=== PATIENT | female | born 1985 | race Caucasian/White ===

== ENCOUNTER 2016-09-08 20:01 | Emergency (ER) | payer OTHER ==
--- NOTE | 2016-09-08 21:16 | EDDOCDS ---
Physician Documentation [facility] Name: Stella Abreu Age: 31 yrs Sex: Female : 1985 Arrival Date: 09/08/2016 Time: 20:01 Bed 7 Private MD: Beata Salazar H Disposition: 09/08/16 21:06 Discharged to Home/Self Care. Impression: Urinary tract infection, site not specified. - Condition is Stable. - Prescriptions for Keflex 500 mg Oral Capsule - take 1 capsule by ORAL route every 8 hours for 10 days; 30 capsule. - Medication Reconciliation, Local Pharmacy Hours form. - Follow up: Private Physician; When: Call to arrange an appointment; Reason: Recheck today's complaints. - Problem is new. - Symptoms have improved. Historical: - Allergies: no known allergies; - Home Meds: 1. Lexapro 25mg Oral once daily 2. Hydroxyzine 20mg Oral as needed - PMHx: none; - PSHx: none; - Social history: Smoking status: Patient states was never smoker of tobacco. No barriers to communication noted, The patient speaks fluent Guamanian. - Family history: Not pertinent. - : The pt / caregiver states he / she is not on anticoagulants. Home medication list is obtained from the patient. - Exposure Risk Screening:: None identified. 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 2 in. (157.48 cm); Pain 8/10; 21:13 BP 129 / 76; Pulse 95; Resp 18 S; Temp 98.1(O); Pulse Ox 99% on R/A; Pain 0/10; af2 20:03 Body Mass Index 20.30 (50.35 kg, 157.48 cm) cmb MDM: 20:16 Urinalysis Ordered. EDMS 20:16 Urine Culture Ordered. EDMS 21:04 Urinalysis Reviewed. cs11 Signatures: Dispatcher [employer] EDPaty Nelson RN RN Juan Horn, DO DO cs11 Esperanza,Dana,RN RN af2 MTDD
--- NOTE | 2016-09-08 21:16 | EDDOCDS ---
Nurse's Notes [facility] Name: Stella Abreu Age: 31 yrs Sex: Female : 1985 Arrival Date: 09/08/2016 Time: 20:01 Bed 7 Private MD: Beata Salazar H Diagnosis: Urinary tract infection, site not specified Presentation: 09/08 20:10 Presenting complaint: Patient states: Is having burning with urination, urine dark and mcp foul smelling. Is 7 weeks . Adult Sepsis Screening: The patient does not have new or worsening altered mentation. Patient's respiratory rate is less than 22. Systolic blood pressure is greater than 100. Patient has a qSOFA score of 0- Negative Sepsis Screen. Suicide/Homicide risk assessment- the patient denies having any suicidal and/or homicidal ideations and does not present with any other emotional, behavioral or mental health complaints. 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 Transition of care: patient was not received from another setting of care. 20:10 Acuity: MARY Level 4 [facility] 20:10 Method Of Arrival: Walkin/Carried/Asstd [facility] Triage Assessment: 20:12 General: Appears in no apparent distress, Behavior is cooperative. Pain: Location: with mcp urination. HIV screening NA for this visit Offered previously. Neurological: No deficits noted. Respiratory: No deficits noted. : Reports burning with urination. Derm: Skin is pink, warm & dry. 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 Lexapro 25mg Oral once daily 2. Hydroxyzine 20mg Oral as needed - PMHx: none; - PSHx: none; - Social history: Smoking status: Patient states was never smoker of tobacco. No barriers to communication noted, The patient speaks fluent Belarusian. - Family history: Not pertinent. - : The pt / caregiver states he / she is not on anticoagulants. Home medication list is obtained from the patient. - Exposure Risk Screening:: None identified. Screenin:46 Screening information is obtained from the patient. Fall risk: No risks identified. af2 Assistance ADL's: requires no assistance with activities of daily living. Abuse/DV Screen: The patient / caregiver reports he/she is: not in a situation that causes fear, pain or injury. Nutritional screening: No deficits noted. Advance Directives: Currently, there is no health care proxy. home support is adequate. Assessment: 20:45 General: Appears in no apparent distress, comfortable, Behavior is appropriate for age, af2 cooperative, reports being 7 wks , white discharge, burning with urination, states to this telegraphic typewriter operator "the amado i've been sleeping with has herpes." dr gtz aware.. Vital Signs: 20:03 BP 132 / 82; Pulse 88; Resp 16; Temp 97.6(O); Pulse Ox 100% ; Weight 50.35 kg; Height 5 cmb ft. 2 in. (157.48 cm); Pain 8/10; 21:13 BP 129 / 76; Pulse 95; Resp 18 S; Temp 98.1(O); Pulse Ox 99% on R/A; Pain 0/10; af2 20:03 Body Mass Index 20.30 (50.35 kg, 157.48 cm) cmb Vitals: 20:03 Log In Time: September 08, 2016 at 20:01. cmb ED Course: 20:03 Patient visited by Ruma Vargas. cmb 20:03 Beata Salazar is Private Physician. cmb 20:03 Patient moved to Waiting cmb 20:03 Patient moved to Pre RCE cmb 20:10 Patient moved to Triage 2 kmg1 20:10 Patient moved to Pre RCE kmg1 20:11 Triage Initiated [facility] 20:13 Patient visited by Paty Howard RN. mcp 20:13 Dana Mata RN is Primary Nurse. mcp 20:13 Juan Gtz DO is Attending Physician. cs11 20:13 Patient visited by Juan Gtz DO. cs11 20:13 Patient moved to 7 mcp 20:45 Urinalysis Sent. af2 20:45 Urine Culture Sent. af2 20:47 Patient visited by Dana Mata RN. af2 20:47 The patient / caregiver is instructed regarding the plan of care and ED course. Patient af2 has correct armband on for positive identification. Placed in gown. 21:15 No IV's were initiated during this patient's visit. No procedures done that require af2 assistance. Order Results: Lab Order: Urinalysis; SPEC'M 09/08/16 20:45 Test: APPEARANCE, URINE; Value: CLOUDY; Range: CLEAR; Abnormal: Above high normal; Status: F Test: COLOR, URINE; Value: YELLOW; Range: YELLOW; Status: F Test: PH,URINE; Value: 6.0; Range: 5.0-9.0; Units: UNITS; Status: F Test: SPECIFIC GRAVITY URINE AUTO; Value: 1.015; Range: 1.002-1.035; Status: F Test: PROTEIN, URINE AUTO; Value: NEGATIVE; Range: NEGATIVE; Units: mg/dL; Status: F Test: GLUCOSE, URINE (UA) AUTO; Value: NEGATIVE; Range: NEGATIVE; Units: mg/dL; Status: F Test: KETONE, URINE AUTO; Value: NEGATIVE; Range: NEGATIVE; Units: mg/dL; Status: F Test: UROBILINOGEN, URINE AUTO; Value: 0.2; Range: 0.0-2.0; Units: mg/dL; Status: F Test: BILIRUBIN, URINE AUTO; Value: NEGATIVE; Range: NEGATIVE; Status: F Test: NITRITE, URINE AUTO; Value: NEGATIVE; Range: NEGATIVE; Status: F Test: LEUKOCYTE ESTERASE, URINE AUTO; Value: 3+; Range: NEGATIVE; Abnormal: Above high normal; Status: F Test: BLOOD, URINE BLOOD; Value: NEGATIVE; Range: NEGATIVE; Status: F Test: WBC, URINE AUTO; Value: 37; Range: 0-3; Abnormal: Above high normal; Units: /HPF; Status: F Test: RBC, URINE AUTO; Value: 3; Range: 0-3; Units: /HPF; Status: F Test: BACTERIA, URINE AUTO; Value: NEGATIVE; Range: NEGATIVE; Status: F Test: SQUAMOUS EPITHELIAL CELL UR AU; Value: 9; Range: 0-6; Units: /HPF; Status: F Test: TRANSITIONAL EPITHELIAL AUTO; Value: 1; Range: NONE; Units: /HPF; Status: F Test: MUCUS, URINE; Value: SMALL; Range: NEGATIVE; Status: F Test: HYALINE CAST, URINE AUTO; Value: 0; Range: 0-1; Units: /LPF; Status: F Outcome: 21:06 Discharge ordered by Provider. [facility] 21:14 Discharge Assessment: Patient awake, alert and oriented x 3. No cognitive and/or af2 functional deficits noted. Patient verbalized understanding of disposition instructions. patient administered narcotics - no. The following High Risk Discharge criteria are identified: None. Discharged to home ambulatory. Condition: stable. Discharge instructions given to patient, Instructed on discharge instructions, follow up and referral plans. medication usage, safe sex practices, referral to PCP and public health for STD testing. No special radiology studies were completed. Property :Personal belongings accompany Pt. 21:15 Patient left the ED. af2 Signatures: Yusra Shin RN RN kmg1 Paty Howard RN RN Ruma Lauren Craig, DO DO cs11 Dana Mata RN RN af2 Corrections: (The following items were deleted from the chart) 20:12 20:10 Presenting complaint: Patient states: Is having burning with urination, urine mcp dark and foul smelling mcp MTDD
--- NOTE | 2016-09-10 22:15 | EDDOCDS ---
Physician Documentation [facility] Name: Stella Abreu Age: 31 yrs Sex: Female : 1985 Arrival Date: 09/08/2016 Time: 20:01 Bed 7 Private MD: Beata Salazar H Disposition: 09/08/16 21:06 Discharged to Home/Self Care. Impression: Urinary tract infection, site not specified. - Condition is Stable. - Prescriptions for Keflex 500 mg Oral Capsule - take 1 capsule by ORAL route every 8 hours for 10 days; 30 capsule. - Medication Reconciliation, Local Pharmacy Hours form. - Follow up: Private Physician; When: Call to arrange an appointment; Reason: Recheck today's complaints. - Problem is new. - Symptoms have improved. Historical: - Allergies: no known allergies; - Home Meds: 1. Lexapro 25mg Oral once daily 2. Hydroxyzine 20mg Oral as needed - PMHx: none; - PSHx: none; - Social history: Smoking status: Patient states was never smoker of tobacco. No barriers to communication noted, The patient speaks fluent Pakistani. - Family history: Not pertinent. - : The pt / caregiver states he / she is not on anticoagulants. Home medication list is obtained from the patient. - Exposure Risk Screening:: None identified. 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 2 in. (157.48 cm); Pain 8/10; 21:13 BP 129 / 76; Pulse 95; Resp 18 S; Temp 98.1(O); Pulse Ox 99% on R/A; Pain 0/10; af2 20:03 Body Mass Index 20.30 (50.35 kg, 157.48 cm) cmb MDM: 20:16 Urinalysis Ordered. EDMS 20:16 Urine Culture Ordered. EDMS 21:04 Urinalysis Reviewed. cs11 21:28 Financial registration complete. zo 21:28 [facility] Payment Agreement was scanned into [employer] and attached to record. zo 09/09 09:10 T-Sheet-- Draft Copy was scanned into [employer] and attached to record. [facility] Signatures: Dispatcher [employer] Paty Rhodes RN RN mcp Olin, Zoeann zo Schiff, Craig, DO DO cs11 Dana Mata RN RN af2 Annabelle Mcbirde [facility] The chart was reviewed and I authenticate all verbal orders and agree with the evaluation and treatment provided.Attachments: 09/08 21:28 [facility] Payment Agreement zo 09/09 09:10 T-Sheet-- Draft Copy [facility] Chart Complete MTDD
--- NOTE | 2016-09-10 22:15 | EDDOCDS ---
Nurse's Notes [facility] Name: Stella Abreu Age: 31 yrs Sex: Female : 1985 Arrival Date: 09/08/2016 Time: 20:01 Bed 7 Private MD: Beata Salazar H Diagnosis: Urinary tract infection, site not specified Presentation: 09/08 20:10 Presenting complaint: Patient states: Is having burning with urination, urine dark and mcp foul smelling. Is 7 weeks . Adult Sepsis Screening: The patient does not have new or worsening altered mentation. Patient's respiratory rate is less than 22. Systolic blood pressure is greater than 100. Patient has a qSOFA score of 0- Negative Sepsis Screen. Suicide/Homicide risk assessment- the patient denies having any suicidal and/or homicidal ideations and does not present with any other emotional, behavioral or mental health complaints. Status: Patient is not a mobile home servicer or dependent. Transition of care: patient was not received from another setting of care. 20:10 Acuity: MARY Level 4 [facility] 20:10 Method Of Arrival: Walkin/Carried/Asstd [facility] Triage Assessment: 20:12 General: Appears in no apparent distress, Behavior is cooperative. Pain: Location: with mcp urination. HIV screening NA for this visit Offered previously. Neurological: No deficits noted. Respiratory: No deficits noted. : Reports burning with urination. Derm: Skin is pink, warm & dry. 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 Lexapro 25mg Oral once daily 2. Hydroxyzine 20mg Oral as needed - PMHx: none; - PSHx: none; - Social history: Smoking status: Patient states was never smoker of tobacco. No barriers to communication noted, The patient speaks fluent Albanian. - Family history: Not pertinent. - : The pt / caregiver states he / she is not on anticoagulants. Home medication list is obtained from the patient. - Exposure Risk Screening:: None identified. Screenin:46 Screening information is obtained from the patient. Fall risk: No risks identified. af2 Assistance ADL's: requires no assistance with activities of daily living. Abuse/DV Screen: The patient / caregiver reports he/she is: not in a situation that causes fear, pain or injury. Nutritional screening: No deficits noted. Advance Directives: Currently, there is no health care proxy. home support is adequate. Assessment: 20:45 General: Appears in no apparent distress, comfortable, Behavior is appropriate for age, af2 cooperative, reports being 7 wks , white discharge, burning with urination, states to this auto service writer "the amado i've been sleeping with has herpes." dr gtz aware.. Vital Signs: 20:03 BP 132 / 82; Pulse 88; Resp 16; Temp 97.6(O); Pulse Ox 100% ; Weight 50.35 kg; Height 5 cmb ft. 2 in. (157.48 cm); Pain 8/10; 21:13 BP 129 / 76; Pulse 95; Resp 18 S; Temp 98.1(O); Pulse Ox 99% on R/A; Pain 0/10; af2 20:03 Body Mass Index 20.30 (50.35 kg, 157.48 cm) cmb Vitals: 20:03 Log In Time: September 08, 2016 at 20:01. cmb ED Course: 20:03 Patient visited by Ruma Vargas. cmb 20:03 Beata Salazar is Private Physician. cmb 20:03 Patient moved to Waiting cmb 20:03 Patient moved to Pre RCE cmb 20:10 Patient moved to Triage 2 kmg1 20:10 Patient moved to Pre RCE kmg1 20:11 Triage Initiated [facility] 20:13 Patient visited by Paty Howard RN. mcp 20:13 Dana Mata RN is Primary Nurse. mcp 20:13 Juan Gtz DO is Attending Physician. cs11 20:13 Patient visited by Juan Gtz DO. cs11 20:13 Patient moved to 7 mcp 20:45 Urinalysis Sent. af2 20:45 Urine Culture Sent. af2 20:47 Patient visited by Dana Mata RN. af2 20:47 The patient / caregiver is instructed regarding the plan of care and ED course. Patient af2 has correct armband on for positive identification. Placed in gown. 21:15 No IV's were initiated during this patient's visit. No procedures done that require af2 assistance. 21:28 [facility] was scanned into [employer] and attached to record. zo 09/09 09:10 T-Sheet-- Draft Copy was scanned into [employer] and attached to record. [facility] Order Results: Lab Order: Urinalysis; SPEC'M 09/08/16 20:45 Test: APPEARANCE, URINE; Value: CLOUDY; Range: CLEAR; Abnormal: Above high normal; Status: F Test: COLOR, URINE; Value: YELLOW; Range: YELLOW; Status: F Test: PH,URINE; Value: 6.0; Range: 5.0-9.0; Units: UNITS; Status: F Test: SPECIFIC GRAVITY URINE AUTO; Value: 1.015; Range: 1.002-1.035; Status: F Test: PROTEIN, URINE AUTO; Value: NEGATIVE; Range: NEGATIVE; Units: mg/dL; Status: F Test: GLUCOSE, URINE (UA) AUTO; Value: NEGATIVE; Range: NEGATIVE; Units: mg/dL; Status: F Test: KETONE, URINE AUTO; Value: NEGATIVE; Range: NEGATIVE; Units: mg/dL; Status: F Test: UROBILINOGEN, URINE AUTO; Value: 0.2; Range: 0.0-2.0; Units: mg/dL; Status: F Test: BILIRUBIN, URINE AUTO; Value: NEGATIVE; Range: NEGATIVE; Status: F Test: NITRITE, URINE AUTO; Value: NEGATIVE; Range: NEGATIVE; Status: F Test: LEUKOCYTE ESTERASE, URINE AUTO; Value: 3+; Range: NEGATIVE; Abnormal: Above high normal; Status: F Test: BLOOD, URINE BLOOD; Value: NEGATIVE; Range: NEGATIVE; Status: F Test: WBC, URINE AUTO; Value: 37; Range: 0-3; Abnormal: Above high normal; Units: /HPF; Status: F Test: RBC, URINE AUTO; Value: 3; Range: 0-3; Units: /HPF; Status: F Test: BACTERIA, URINE AUTO; Value: NEGATIVE; Range: NEGATIVE; Status: F Test: SQUAMOUS EPITHELIAL CELL UR AU; Value: 9; Range: 0-6; Units: /HPF; Status: F Test: TRANSITIONAL EPITHELIAL AUTO; Value: 1; Range: NONE; Units: /HPF; Status: F Test: MUCUS, URINE; Value: SMALL; Range: NEGATIVE; Status: F Test: HYALINE CAST, URINE AUTO; Value: 0; Range: 0-1; Units: /LPF; Status: F Lab Order: Urine Culture; SPEC'M 09/08/16 20:45 Test: URINE CULTURE; Value: <EXTERNAL COMMENT eCWMed> FULL REPORT IN LAB NOTES (eCW and Medent).; Status: F Test: URINE CULTURE; Value: URINE CULTURE RESULT SPECIMEN APPEARS CONTAMINATED; Status: F Outcome: 09/08 21:06 Discharge ordered by Provider. 11 21:14 Discharge Assessment: Patient awake, alert and oriented x 3. No cognitive and/or af2 functional deficits noted. Patient verbalized understanding of disposition instructions. patient administered narcotics - no. The following High Risk Discharge criteria are identified: None. Discharged to home ambulatory. Condition: stable. Discharge instructions given to patient, Instructed on discharge instructions, follow up and referral plans. medication usage, safe sex practices, referral to PCP and public health for STD testing. No special radiology studies were completed. Property :Personal belongings accompany Pt. 21:15 Patient left the ED. af2 Signatures: Yusra Shin RN RN kmg1 Paty Howard RN RN Floresita Esparza [place] cmb Schiff, Craig, DO DO cs11 Dana Mata RN RN af2 Annabelle Mcbride Corrections: (The following items were deleted from the chart) 20:12 20:10 Presenting complaint: Patient states: Is having burning with urination, urine mcp dark and foul smelling mcp Chart Complete MTDD
--- NOTE | 2016-09-10 22:15 | EDDOCDS ---
Physician Documentation [facility] Name: Stella Abreu Age: 31 yrs Sex: Female : 1985 Arrival Date: 09/08/2016 Time: 20:01 Bed 7 Private MD: Beata Salazar H Disposition: 09/08/16 21:06 Discharged to Home/Self Care. Impression: Urinary tract infection, site not specified. - Condition is Stable. - Prescriptions for Keflex 500 mg Oral Capsule - take 1 capsule by ORAL route every 8 hours for 10 days; 30 capsule. - Medication Reconciliation, Local Pharmacy Hours form. - Follow up: Private Physician; When: Call to arrange an appointment; Reason: Recheck today's complaints. - Problem is new. - Symptoms have improved. Historical: - Allergies: no known allergies; - Home Meds: 1. Lexapro 25mg Oral once daily 2. Hydroxyzine 20mg Oral as needed - PMHx: none; - PSHx: none; - Social history: Smoking status: Patient states was never smoker of tobacco. No barriers to communication noted, The patient speaks fluent Argentine. - Family history: Not pertinent. - : The pt / caregiver states he / she is not on anticoagulants. Home medication list is obtained from the patient. - Exposure Risk Screening:: None identified. 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 2 in. (157.48 cm); Pain 8/10; 21:13 BP 129 / 76; Pulse 95; Resp 18 S; Temp 98.1(O); Pulse Ox 99% on R/A; Pain 0/10; af2 20:03 Body Mass Index 20.30 (50.35 kg, 157.48 cm) cmb MDM: 20:16 Urinalysis Ordered. EDMS 20:16 Urine Culture Ordered. EDMS 21:04 Urinalysis Reviewed. cs11 21:28 Financial registration complete. zo 21:28 [facility] Payment Agreement was scanned into [employer] and attached to record. zo 09/09 09:10 T-Sheet-- Draft Copy was scanned into [employer] and attached to record. [facility] Signatures: Dispatcher [employer] Paty Rhodes RN RN mcp Olin, Zoeann zo Schiff, Craig, DO DO cs11 Dana Mata RN RN af2 Annabelle Mcbride [facility] The chart was reviewed and I authenticate all verbal orders and agree with the evaluation and treatment provided.Attachments: 09/08 21:28 [facility] Payment Agreement zo 09/09 09:10 T-Sheet-- Draft Copy [facility] Chart Complete MTDD
== END 2016-09-08 21:15 | disposition home or self-care (01) ==
LOC: M ED 20:01
DX: O23.41 Unspecified infection of urinary tract in pregnancy, first trimester (principal); O99.341 Other mental disorders complicating pregnancy, first trimester; F32.9 Major depressive disorder, single episode, unspecified; Z79.899 Other long term (current) drug therapy; Z3A.01 Less than 8 weeks gestation of pregnancy

== ENCOUNTER → 2016-12-03 | Outpatient (CLI) | payer OTHER ==
--- NOTE | 2016-12-03 11:09 | REP ---
Clinical: Anatomical evaluation. Comparison: None . Findings: Examination demonstrates a single live intrauterine in cephalic presentation. motion is identified by technologist. Placenta is noted anterior fundally and grade I without evidence for placenta previa or abruption. Amniotic fluid volume is normal. Cervix measures 3.6 cm in length and appears closed. No evidence for nuchal cord. Gestational age by LMP 18 weeks 6 days with [place] 04/30/2017. Gestational age by current measurements 18 weeks 0 days with [place] an 23 17 . FHR equals 131 beats per minute. BPD 4.1 cm 18 weeks 3-day HC 14.8 cm 18 weeks 0 days AC 12.3 cm 18 weeks 0 days FL 2.6 cm 18 weeks 0 days HL 2.5 cm 17 weeks 6 days HC/AC ratio 1.21 Estimated weight 217 grams ( 14th percentile). Anatomical assessment demonstrates normal structures including cranium, cavum, cerebellum/posterior fossa, facial features, lungs, diaphragm, stomach, cord insertion/three-vessel cord, kidneys/bladder, spine, and extremities. Small bilateral choroid plexus cysts measuring up to 3 mm are identified. A small pericardial effusion is noted along with echogenic focus in the left ventricle. Mild renal pelviectasis within normal range. Impression: Single live intrauterine in cephalic presentation demonstrating appropriate interval growth. Anatomical findings as described above warrant reevaluation and follow-up. Signed by Keaton Julien MD 12/03/2016 11:01 A
== END ==
LOC: M RAD 09:22
PROVIDERS: ATTEND Advanced Practice Midwife
DX: Z34.82 Encounter for supervision of other normal pregnancy, second trimester (principal); Z3A.18 18 weeks gestation of pregnancy

== ENCOUNTER → 2017-04-05 | Outpatient (REF) | payer OTHER ==
[~2017-04-05] MED LIST: ACET50TA PO; BUPR2SUB SL; IBUP-1114 PO; MOTR200T44 PO; PREN27TA3 PO; PRENTAB9 PO; SUBO2MIS SL
== END ==
LOC: M LAB REF 13:17
PROVIDERS: ATTEND Advanced Practice Midwife
DX: Z34.83 Encounter for supervision of other normal pregnancy, third trimester (principal)

== ENCOUNTER 2017-05-04 23:43 | Inpatient (IN) | payer OTHER ==
[~2017-05-04] VITALS: Ht 170.2 cm; Wt 62.3 kg
[2017-05-05] MEDS ORDERED: PENICILLIN G POTASSIUM IV 5 MU in D5W MINI-BAG PLUS 100 ML IV STA (01:22)
[2017-05-05] MEDS ORDERED: miSOPROStol 50 MCG 1/2 TAB (S0191) PO SCH (01:30)
[2017-05-05] MEDS ORDERED: PROMETHAZINE INJ 25 MG/ML VIAL (J2550) IV PRN ×2 (01:45→10:15)
[2017-05-05] MEDS ORDERED: BUTORPHANOL 2 MG/ML INJ (J0595) IV ONE (01:45)
[2017-05-05 01:47] LABS: MEAN CORPUSCULAR HEMOGLOBIN 25.7 pg (27.0-33.0); MEAN CORPUSCULAR HGB CONC 31.1 g/dl (32.0-36.5); MEAN CORPUSCULAR VOLUME 82.6 fl (80.0-96.0); PLATELET COUNT, AUTOMATED 262 10^3/uL (150-450); RED CELL DISTRIBUTION WIDTH 14.2 % (11.5-14.5); WHITE BLOOD COUNT 11.2 10^3/uL (4.0-10.0)
[2017-05-05] MEDS ORDERED: FENTANYL 2MCG/ML ROPIVACAINE 0.2% IN 0.9% NACL 200ML IVBAG As Ordered ONE (05:03)
[2017-05-05] MEDS ORDERED: FENTANYL/ROPIVACAINE/NACL BAG 200 ML EPIDURAL SCH (05:40)
[2017-05-05] MEDS ORDERED: EPIDURAL COMMENT XX SCH (05:40)
[2017-05-05] MEDS ORDERED: EPIDURAL/PCA KEYS XX PRN (05:40)
[2017-05-05] MEDS ORDERED: diphenhydrAMINE INJ 50MG/ML VIAL (J1200) IV PRN (05:40)
[2017-05-05] MEDS ORDERED: ePHEDrine SULFATE 25 MG/5 ML(5MG/ML) SYRINGE IV PRN (05:40)
[2017-05-05] MEDS ORDERED: ONDANSETRON 4MG/2ML VIAL (J2405) IV PRN (05:40)
[2017-05-05] MEDS ORDERED: LACTATED RINGER'S 1000 ML IV PRN (05:40)
[2017-05-05] MEDS ORDERED: NALOXONE INJ 0.4 MG/1 ML VIAL (J2310) IV PRN (05:40)
[2017-05-05] MEDS ORDERED: REFRIGERATOR IV KEYS XX PRN (05:40)
[2017-05-05] MEDS ORDERED: OXYTOCIN 30 UNITS IN 0.9% NaCl 500ML IV BAG (J2590) As Ordered ONE (05:46)
[2017-05-05] MEDS ORDERED: PENICILLIN G POTASSIUM IV 2.5 MU in D5W 100 ML IV SCH (06:30)
[2017-05-05] MEDS ORDERED: OXYTOCIN DRIP 30 UNITS in APPROPRIATE DILUENT 1 EA IV SCH (07:05)
[2017-05-05] MEDS ORDERED: MEASLES,MUMPS,RUBELLA VACCINE INJ (MMR-II) (90707) SC SCH (07:15)
[2017-05-05] MEDS ORDERED: RHOGAM 300 MCG (1500 IU) INJ (J2790) IM SCH (07:15)
[2017-05-05] MEDS ORDERED: METHYLERGONOVINE MALEATE 0.2 MG TAB PO PRN (07:15)
[2017-05-05] MEDS ORDERED: ACETAMINOPHEN 500 MG TAB PO PRN (07:15)
[2017-05-05] MEDS ORDERED: ANUSOL HC CREAM 30GM TOP PRN (07:15)
[2017-05-05] MEDS ORDERED: IBUPROFEN 800 MG TAB PO PRN (07:15)
[2017-05-05] MEDS ORDERED: DIBUCAINE 1% OINTMENT 30GM TOP PRN (07:15)
[2017-05-05] MEDS ORDERED: MOM 30ML SUSPENSION UDC PO PRN (07:15)
[2017-05-05] MEDS ORDERED: DOCUSATE SODIUM 100 MG CAP PO PRN (07:15)
--- NOTE | 2017-05-05 09:16 | HPE ---
DATE OF ADMISSION: 05/04/2017 REASON FOR ADMISSION: Induction of labor. HISTORY OF PRESENT ILLNESS: Ms. Abreu is a 31-year-old 5, para 2, who presents at 40 weeks 5 days estimated gestational age by her last menstrual period confirmed by a first trimester ultrasound here for induction of labor. Her course has been unremarkable. She initiated care at 18 weeks and has been appropriate throughout. PAST MEDICAL HISTORY: 1. History of substance abuse. 2. Hepatitis C. 3. Depression and anxiety. PAST SURGICAL HISTORY: None. MEDICATIONS: Include: - Subutex 2 mg twice a day - Valtrex - vitamins ALLERGIES: She has no known drug allergies. PHYSICAL EXAMINATION: VITAL SIGNS: Stable. She is afebrile. She has a category 1 heart rate tracing. No contractions on tachometer. GENERAL APPEARANCE: Well-appearing in no acute distress. LUNGS: Clear to auscultation bilaterally. CARDIOVASCULAR: Heart is regular rate and rhythm. ABDOMEN: Gravid, nontender. Estimated weight (EFW) 3600 grams. CERVICAL EXAM: She is 2 cm dilated, 50% effaced, -2 station. LABORATORIES: Her blood type is A positive. Antibody screen is negative. Rubella is immune. RPR is nonreactive. Hepatitis surface antigen is negative. HIV is negative. Chlamydia and gonorrhea screens are negative. She had a normal 1-hour Glucola. She is group B Streptococcus (GBS) positive. ASSESSMENT: 1. Ms. bAreu is a 31-year-old 5, para 2 at 40 weeks 5 days estimated gestational age here for induction of labor. 2. Reassuring status. 3. Group B Streptococcus (GBS) positive. PLAN: 1. Admit to labor and delivery. Complete blood count (CBC), RPR, type and screen. 2. Penicillin for GBS positive. 3. Patient has been thoroughly counseled in regards to induction of labor. I discussed medications, also procedures performed in labor and delivery. She has also been verbally consented for emergency surgery, blood products and anesthesia and desires to proceed with admission. 4. Will initiate her induction with 50 mcg of oral misoprostol. MTDD
--- NOTE | 2017-05-05 09:17 | DN ---
DATE OF DELIVERY: 05/05/2017 TIME OF : 0647 hours. GENDER: Male. SCORE: 9 and 9. WEIGHT: 3800 grams or 8 pounds 6 ounces. ANESTHESIA: Epidural. LACERATIONS: None. COUNTS: 5 laparotomy sponges accounted for prior to and after delivery. DELIVERY NOTE: Ms. Abreu is a 31-year-old, 5, now para 3, who had a spontaneous vaginal delivery on 05/04/2017, at 0647 hours of a liveborn male infant. score 9 and 9. Weight was 3800 grams or 8 pounds 6 ounces. Head was delivered right occiput anterior (REG[place]) over an intact peritoneum, along with a compound left arm. This was followed by delivery of left anterior shoulder, right posterior shoulder and corpus. was handed to mom with a good cry. Cord was clamped times two. It was cut by the father of the baby under my direction. Cord blood was obtained. Placenta was then drained and delivered grossly intact. A premixed bag of 500 mL of normal saline with 30 units of Pitocin was then bolused along with uterine massage until the uterus was firm. On inspection, cervix, vagina, perineum was grossly intact and hemostatic. Mom and baby recovered in stable condition. Couple have decided to name their son, Pelon. ALEJANDRA
[2017-05-05 10:55] VITALS: BP 126/68
[2017-05-05] MEDS: BUPRENORPHINE/NALOXONE 2-0.5MG SUBLINGUAL TABLET(SUBOXONE) SL SCH ×2 (11:34→21:12)
[2017-05-05] MEDS: PRENATAL VITAMINS CHEWABLE TABLET PO SCH (12:11)
[2017-05-05] MEDS: LR 1,000 ML IV SCH ×2 (15:50→23:53)
[2017-05-05 18:09] VITALS: BP 133/71
[2017-05-06 06:00] VITALS: BP 127/81
[2017-05-06] MEDS: LR 1,000 ML IV SCH (07:45)
[2017-05-06] MEDS: PRENATAL VITAMINS CHEWABLE TABLET PO SCH (08:33)
[2017-05-06] MEDS: BUPRENORPHINE/NALOXONE 2-0.5MG SUBLINGUAL TABLET(SUBOXONE) SL SCH ×2 (08:33→20:54)
[2017-05-06 18:10] VITALS: BP 127/75
[2017-05-07 06:00] VITALS: BP 126/77
[2017-05-07] MEDS: BUPRENORPHINE/NALOXONE 2-0.5MG SUBLINGUAL TABLET(SUBOXONE) SL SCH (08:26)
[2017-05-07] MEDS: PRENATAL VITAMINS CHEWABLE TABLET PO SCH (08:28)
[2017-05-07] MEDS ORDERED: PRENTAB9 PO (11:36)
[2017-05-07] MEDS ORDERED: IBUP-1114 PO (11:37)
[2017-05-07] MEDS ORDERED: ACET50TA PO (11:37)
[2017-05-07] MEDS ORDERED: SUBO2MIS SL (22:10)
[2017-05-08] MEDS ORDERED: PREN27TA3 PO (03:04)
[2017-05-08] MEDS ORDERED: BUPR2SUB SL (03:04)
== END 2017-05-07 18:00 | disposition home or self-care (01) | DRG 560 ==
LOC: M LDI 23:43 → M OBS 05-05 10:36
PROVIDERS: ADMIT Obstetrics & Gynecology; ATTEND Obstetrics & Gynecology
PROC: 3E0DXGC Introduction of Other Therapeutic Substance into Mouth and Pharynx, External Approach (ICD-10-PCS; 2017-05-04)
PROC: 10E0XZZ Delivery of Products of Conception, External Approach (ICD-10-PCS; principal; 2017-05-05)
DX: O48.0 Post-term pregnancy (principal); Z37.0 Single live birth; Z3A.40 40 weeks gestation of pregnancy; Z05.1 Observation and evaluation of newborn for suspected infectious condition ruled out

== ENCOUNTER 2017-05-07 21:54 | Emergency (ER) | payer MEDICAID, OTHER ==
[~2017-05-07] VITALS: Ht 157.5 cm; Wt 62.3 kg
[~2017-05-07 21:54] MED LIST changes: -BUPR2SUB SL; -MOTR200T44 PO; -PREN27TA3 PO; -SUBO2MIS SL
[2017-05-07] MEDS ORDERED: SUBO2MIS SL (22:10)
[2017-05-07] MEDS ORDERED: NS 1,000 ML IV ONE (22:30)
[2017-05-07] MEDS ORDERED: BUPRENORPHINE/NALOXONE 2-0.5MG SUBLINGUAL TABLET(SUBOXONE) SL ONE (22:30)
[2017-05-07] MEDS ORDERED: ACETAMINOPHEN TAB 650MG DOSE (2X325MG) PO ONE (22:30)
[2017-05-07 23:12] LABS: MEAN CORPUSCULAR HEMOGLOBIN 25.3 pg (27.0-33.0); MEAN CORPUSCULAR HGB CONC 30.5 g/dl (32.0-36.5); MEAN CORPUSCULAR VOLUME 83.2 fl (80.0-96.0); PLATELET COUNT, AUTOMATED 270 10^3/uL (150-450); RED CELL DISTRIBUTION WIDTH 14.4 % (11.5-14.5); WHITE BLOOD COUNT 7.2 10^3/uL (4.0-10.0)
[2017-05-07 23:15] LABS: POSITIVE MORPH POS FLAG
[2017-05-07 23:16] LABS: ADD MANUAL DIFFER YES; DIFF SLIDE NUMBER 350; LEFT SHIFT POS FLAG
[2017-05-07 23:41] LABS: ALBUMIN 2.5 GM/DL (3.2-5.2); ALKALINE PHOSPHATASE 291 U/L (45-117); ALT/SGPT 30 U/L (12-78); ANION GAP 11 MEQ/L (8-16); AST/SGOT 39 U/L (15-37); BILIRUBIN,DIRECT 0.4 MG/DL (0.0-0.2); BILIRUBIN,TOTAL 0.6 MG/DL (0.2-1.0); BLOOD UREA NITROGEN 10 MG/DL (7-18); CALCIUM LEVEL 8.2 MG/DL (8.5-10.1); CARBON DIOXIDE LEVEL 23 MEQ/L (21-32); CHLORIDE LEVEL 105 MEQ/L (98-107); CREATININE FOR GFR 0.83 MG/DL (0.55-1.02); GLOMERULAR FILTRATION RATE > 60.0 (>60); GLUCOSE, FASTING 87 MG/DL (70-105); POTASSIUM SERUM 3.1 MEQ/L (3.5-5.1); SODIUM LEVEL 139 MEQ/L (136-145); TOTAL PROTEIN 6.7 GM/DL (6.4-8.2)
[2017-05-07 23:42] LABS: BANDS 2 % (< 11); EOSINOPHILS 1 % (0-5)
[2017-05-08] MEDS ORDERED: POTASSIUM CHLORIDE 10% LIQ 20 MEQ/15 ML UDC PO ONE
--- NOTE | 2017-05-08 00:10 | REPUSA ---
CLINICAL HISTORY: Suspected endometrial thickness. TECHNIQUE: Realtime sonographic images were obtained in multiple projections via TV approach. COMMENTS: The uterus is anteverted measuring 17.7x8.5x4.3 cm. The endometrial echo pattern is within normal jonas its measuring 14.3 mm.. There is no evidence of free fluid within the pelvic cul-de-sac. The ovaries were not visualized. There is no evidence for abnormal vascularity. IMPRESSION: Enlarged uterus suggestive of 2 days . Endometrium is thin and smooth. No gross adnexal mass. Empty bladder. Thank you for your kind referral of this patient.
[2017-05-08] MEDS ORDERED: ISOVUE-370 76% 100ML VIAL (Q9967) As Ordered ONE (00:21)
--- NOTE | 2017-05-08 01:40 | REPUSA ---
CLINICAL HISTORY: Abdominal pain. TECHNIQUE: Multiple axial, sagittal and coronal CT images were obtained through the abdomen and pelvi s after administration of oral and intravenous contrast material. Images were obtained before and aft er IV contrast administration. COMMENTS: Post gravid uterus. Diffuse thickening of the proximal small bowels. The liver is mildly enlarged without mass or defect. There is no intra or extrahepatic biliary ductal dilatation. The spleen is normal. The gallbladder is within normal limits. The pancreas is of normal contour and attenuation characteristics. There is no evidence of adrenal mass. Mild fullness of the collecting systems. Both kidneys demonstrate prompt and equal nephrograms. The kidneys are normal in size, shape and conf iguration. There is no evidence of renal or ureteral mass. No renal or ureteral calculi are identifie d. No evidence for appendicitis. No evidence for small or large bowel obstruction. There is no evidence of abdominal ascites or lymphadenopathy. There is no evidence of intrinsic or extrinsic bladder mass. There is no pelvic ascites or lymphadeno rudi. Images of the lung bases show no evidence of pleural or parenchymal mass. There are no pleural effusi ons. The bony structures are free of lytic or blastic lesions. Multilevel degenerative changes are seen in volving the thoracolumbar spine. Scattered calcifications are seen involving the aorta and major bran ches compatible with atherosclerosis. IMPRESSION: Post gravid enlarged uterus. Diffusely thickened small bowels. Underdistention versus mild enteritis. Thank you for your kind referral of this patient.
--- NOTE | 2017-05-08 01:50 | REPUSA ---
CLINICAL HISTORY: Back pain. Epidural abscess. TECHNIQUE: Multiple axial images were obtained through the L1-L2, L2-L3, L3-L4, L4-L5 and L5-S1 inter spaces. Images were also reconstructed in coronal and sagittal planes. COMMENTS: There is no fracture visualized. The paraspinal soft tissues are unremarkable. There are no lytic or blastic lesions. Straightening of lumbar lordosis is seen, suggesting muscular spasm. There is evidence of multilevel disk disease, demonstrated by osteophytosis ad endplate sclerosis. Evaluation of individual levels reveals the following: At L4-L5 and L5-S1, broad-based disk protrusion in conjunction results in mild bilateral foraminal na rrowing. Canal is not stenotic. At L3-L4, broad-based disk protrusion in conjunction results in mild bilateral foraminal narrowing. C anal is not stenotic. L1-L2 and L2-L3 levels are unremarkable. IMPRESSION: 1. No fracture. 2. No evidence of epidural fluid collection. Thank you for your kind referral of this patient.
[2017-05-08] MEDS ORDERED: NS 1,000 ML IV ONE (02:30)
[2017-05-08] MEDS ORDERED: AMPICILLIN SOD/SULBACTAM SOD 3 GM in D5W MINI-BAG PLUS 100 ML IV ONE (02:30)
[2017-05-08] MEDS ORDERED: IBUPROFEN 800 MG TAB PO PRN (02:45)
[2017-05-08] MEDS ORDERED: DOCUSATE SODIUM 100 MG CAP PO PRN (02:45)
[2017-05-08] MEDS ORDERED: METHYLERGONOVINE MALEATE 0.2 MG TAB PO PRN (02:45)
[2017-05-08] MEDS ORDERED: ACETAMINOPHEN 500 MG TAB PO PRN (02:45)
[2017-05-08] MEDS ORDERED: ONDANSETRON 4MG/2ML VIAL (J2405) IV PRN (02:45)
[2017-05-08] MEDS ORDERED: DIBUCAINE 1% OINTMENT 30GM TOP PRN (02:45)
[2017-05-08] MEDS ORDERED: MOM 30ML SUSPENSION UDC PO PRN (02:45)
[2017-05-08] MEDS ORDERED: ANUSOL HC CREAM 30GM TOP PRN (02:45)
[2017-05-08] MEDS ORDERED: BUPR2SUB SL (03:04)
[2017-05-08] MEDS ORDERED: PREN27TA3 PO (03:04)
[2017-05-08 03:39] VITALS: BP 93/53
--- NOTE | 2017-05-08 04:30 | ECGEPIP ---
Stationary ECG Study [facility] - ED Test Date: 2017-05-07 Pat Name: ZENON MONTOYA Department: Room: - Gender: F [employer] Department Chair: : 1985 Requested By: MACKENZIE Ambrose Order Number: [id number] Reading MD: Lauro Mcdonald Measurements Intervals [place] Rate: 139 P: 62 VA: 137 QRS: 60 QRSD: 80 T: 29 QT: 270 QTc: 412 Interpretive Statements SINUS TACHYCARDIA MODERATE ST DEPRESSION NO PRIORS Electronically Signed On 05-08-2017 4:29:45 EDT by Lauro Mcdonald
--- NOTE | 2017-05-08 07:42 | REP ---
PA and lateral chest: There are no comparisons. The lung deutsch are clear. The cardiac size is normal The migel, mediastinum, and bony thorax are unremarkable. Impression: Negative PA and lateral chest. Signed by Dario Manriquez MD 05/08/2017 07:34 A
[2017-05-08] MEDS ORDERED: BUPRENORPHINE/NALOXONE 2-0.5MG SUBLINGUAL TABLET(SUBOXONE) SL SCH (09:00)
[2017-05-08] MEDS ORDERED: PRENATAL VITAMINS CHEWABLE TABLET PO SCH (09:00)
[2017-05-08] MEDS ORDERED: AMPICILLIN SOD/SULBACTAM SOD 3 GM in D5W MINI-BAG PLUS 100 ML IV SCH (10:00)
[2017-05-09] MEDS ORDERED: MOTR200T44 PO (08:47)
== END 2017-05-08 03:10 | disposition admitted as inpatient to this hospital (09) ==
LOC: M ED 21:54 → M ED INP 05-08 02:43 → UNDOADMIN 05-08 02:43 → M ED 05-08 03:10
DX: N80.9 Endometriosis, unspecified (principal)
CPT/HCPCS: 36415; 71020; 72132; 74177; 76856; 80048; 80076; 81001; 83605; 83690; 85025; 86140; 87040; 87086; 87804; 93000; 93041; 94760; 96361; 96374; 96375; 96376; 99285; Q9967

== ENCOUNTER 2017-05-08 03:23 | Inpatient (IN) | payer OTHER ==
[~2017-05-08] VITALS: Ht 157.5 cm; Wt 62.3 kg
[~2017-05-08 03:23] MED LIST changes: +BUPR2SUB SL; +PREN27TA3 PO; +SUBO2MIS SL
--- NOTE | 2017-05-08 03:46 | IPNPDOC ---
Text Note Date of Service The patient was seen on 05/08/17. NOTE 31yo s/p NSVB 05/05/17. Presents from ED for complaints of fever and abdominal pain. She was treated during labor for GBS prophylaxis. Temp in ED 101.4, mildly tachycardic NKDA Medical/Surgical - History substance abuse, Hepatitis C, Depression and anxiety Medications include Subutex 2mg BID CBC WNL, cultures pending. CT shows post gravid enlarged uterus, diffusely thickened small bowels. Pelvic sono shows normal post gravid changed without evidence of retained POC. Alert, NAD HRR, respirations easy Abdomen soft. Uterus nontender to palpation, displaced to right due to need to void. Perineum intact, lochia rubra light without odor A: fever, endometritis vs UTI P: Admit per consult Dr Tang. Continue Unasyn IV. PO pain management. Observe for culture results and treat accordingly. Trinity Casper CNM May 08, 2017 03:46
[2017-05-08 05:56] VITALS: BP 90/52
[2017-05-08 10:00] VITALS: BP 107/63
[2017-05-08] MEDS: BUPRENORPHINE/NALOXONE 2-0.5MG SUBLINGUAL TABLET(SUBOXONE) SL SCH ×2 (10:04→21:02)
[2017-05-08] MEDS: PRENATAL VITAMINS CHEWABLE TABLET PO SCH (10:05)
[2017-05-08] MEDS: AMPICILLIN SOD/SULBACTAM SOD 3 GM in D5W MINI-BAG PLUS 100 ML IV SCH ×3 (10:05→21:02)
[2017-05-08 13:55] VITALS: BP 112/69
[2017-05-08 17:56] VITALS: BP 112/71
[2017-05-08] MEDS: IBUPROFEN 800 MG TAB PO PRN (19:41)
[2017-05-09] MEDS: AMPICILLIN SOD/SULBACTAM SOD 3 GM in D5W MINI-BAG PLUS 100 ML IV SCH (03:53)
[2017-05-09 05:53] VITALS: BP 139/61
--- NOTE | 2017-05-09 06:46 | DSES ---
DATE OF ADMISSION: 05/08/2016 DATE OF DISCHARGE: 05/09/2016 DISCHARGE DIAGNOSIS: Endometritis resolving day four. HISTORY Stella is a 31-year-old 5, para 3 now, who is status post spontaneous vaginal delivery on 05/05/2017, who was admitted from the emergency room (ER) for complaints of fever and abdominal pain. She was treated during labor for group B streptococcus (GBS) prophylaxis and has had several doses of Unasyn intravenous (IV). Temperature in the ER was mildly elevated at 101.4. She had mild tachycardia. She has been afebrile for greater than 24 hours at this point. She is voiding well, positive bowel movement (BM), has been out of bed for self care , stone care and care. She is breast-feeding and it is going well. PLAN: Discharge the patient to home today. She is to followup at [facility] in one week and then again for a six-week appointment. I reviewed breast care. stone care, pelvic rest, activity and lifting restrictions, access to care, other danger signs to report to including a fever, nausea, vomiting and abdominal pain. Her pain has been managed well with ibuprofen [id number], so a prescription for that will not be needed. Per consult with Dr Conde, no need for outpatient antibiotics. ALEJANDRA
[2017-05-09] MEDS ORDERED: MOTR200T44 PO (08:47)
[2017-05-09] MEDS: PRENATAL VITAMINS CHEWABLE TABLET PO SCH (09:12)
[2017-05-09] MEDS: BUPRENORPHINE/NALOXONE 2-0.5MG SUBLINGUAL TABLET(SUBOXONE) SL SCH (09:12)
[2017-05-09] MEDS: IBUPROFEN 800 MG TAB PO PRN (09:12)
== END 2017-05-09 11:00 | disposition home or self-care (01) | DRG 561 ==
LOC: M OBS 03:23
PROVIDERS: ADMIT Advanced Practice Midwife; ATTEND Advanced Practice Midwife
DX: O86.12 Endometritis following delivery (principal)

== ENCOUNTER 2019-05-12 06:40 | Emergency (ER) | payer OTHER ==
[~2019-05-12] VITALS: Ht 160 cm; Wt 50.0 kg
[~2019-05-12 06:40] MED LIST changes: -ACET50TA PO; +MAPA500T2 PO; +MOTR200T44 PO
[2019-05-12] MEDS ORDERED: NS 1,000 ML IV ONE (07:45)
[2019-05-12] MEDS ORDERED: METOCLOPRAMIDE INJ 10MG/2ML VIAL (J2765) IV ONE (07:45)
[2019-05-12 08:35] LABS: INFLUENZA A AMPLIFICATION NEGATIVE (NEGATIVE); INFLUENZA B AMPLIFICATION NEGATIVE (NEGATIVE)
[2019-05-12] MEDS ORDERED: PROMETHAZINE 12.5 MG SUPP PR ONE ×2 (09:15→10:45)
[2019-05-12 09:28] LABS: BASO % 0.2 % (0.0-1.0); HEMATOCRIT 39.5 % (36.0-47.0); HEMOGLOBIN 13.4 g/dl (12.0-15.5); LYMPH # 0.6 10^3/uL (1.5-5.0); LYMPH % 13.2 % (24.0-44.0); MEAN CORPUSCULAR HEMOGLOBIN 31.4 pg (27.0-33.0); MEAN CORPUSCULAR HGB CONC 33.9 g/dl (32.0-36.5); MEAN CORPUSCULAR VOLUME 92.5 fl (80.0-96.0); MONO # 0.2 10^3/uL (0.0-0.8); MONO % 3.8 % (0.0-5.0); NEUTROPHILS # 3.7 10^3/uL (1.5-8.5); NEUTROPHILS % 82.6 % (36.0-66.0); PLATELET COUNT, AUTOMATED 219 10^3/uL (150-450); RED BLOOD COUNT 4.27 10^6/uL (4.00-5.40); WHITE BLOOD COUNT 4.5 10^3/uL (4.0-10.0)
[2019-05-12 10:37] LABS: ALT/SGPT 113 U/L (12-78); BILIRUBIN,DIRECT 0.1 MG/DL (0.0-0.2); BILIRUBIN,TOTAL 0.4 MG/DL (0.2-1.0); BLOOD UREA NITROGEN 20 MG/DL (7-18); CALCIUM LEVEL 9.1 MG/DL (8.5-10.1); CARBON DIOXIDE LEVEL 21 MEQ/L (21-32); CHLORIDE LEVEL 108 MEQ/L (98-107); CREATININE FOR GFR 0.66 MG/DL (0.55-1.30); GLOMERULAR FILTRATION RATE > 60.0 (>60); GLUCOSE, FASTING 114 MG/DL (70-100); HCG, SERUM QUANTITATIVE 53093 MIU/ML; LIPASE 75 U/L (73-393); POTASSIUM SERUM 3.6 MEQ/L (3.5-5.1); SODIUM LEVEL 140 MEQ/L (136-145); TOTAL PROTEIN 8.6 GM/DL (6.4-8.2)
[2019-05-12] MEDS ORDERED: NITROFURANTOIN (MACROBID) 100 MG CAP PO ONE (10:45)
[2019-05-12] MEDS ORDERED: METOCLOPRAMIDE 10 MG TAB PO ONE (10:45)
[2019-05-12] MEDS ORDERED: REGL10TA6 PO (11:54)
[2019-05-12] MEDS ORDERED: MACR100C43 PO (11:54)
[2019-05-12 13:03] VITALS: BP 119/63
[2019-05-13 09:50] LABS: HEPATITIS A ANTIBODY IGM NEGATIVE (NEGATIVE); HEPATITIS B CORE ANTIBODY IGM NEGATIVE (NEGATIVE); HEPATITIS B SURFACE ANTIGEN NEGATIVE (NEGATIVE)
[2019-05-13 09:51] LABS: HEPATITIS C VIRUS ABY INDEX > 11.0 INDEX (<0.8)
== END 2019-05-12 13:21 | disposition home or self-care (01) ==
LOC: M ED 06:40
DX: N39.0 Urinary tract infection, site not specified (principal); Z32.01 Encounter for pregnancy test, result positive; R11.2 Nausea with vomiting, unspecified; Z83.79 Family history of other diseases of the digestive system

== ENCOUNTER 2020-09-22 08:29 | Emergency (ER) | payer OTHER ==
[~2020-09-22] VITALS: Ht 160 cm; Wt 61.2 kg
[~2020-09-22 08:29] MED LIST changes: +MACR100C43 PO; +REGL10TA6 PO
[2020-09-22] MEDS ORDERED: WELLTAB40 PO (08:50)
[2020-09-22] MEDS ORDERED: NS 1,000 ML IV ONE (09:05)
[2020-09-22 09:54] LABS: HEMATOCRIT 39.9 % (36.0-47.0); HEMOGLOBIN 12.9 g/dl (12.0-15.5); MEAN CORPUSCULAR HEMOGLOBIN 28.6 pg (27.0-33.0); MEAN CORPUSCULAR HGB CONC 32.3 g/dl (32.0-36.5); MEAN CORPUSCULAR VOLUME 88.5 fl (80.0-96.0); PLATELET COUNT, AUTOMATED 245 10^3/uL (150-450); RED BLOOD COUNT 4.51 10^6/uL (4.00-5.40); WHITE BLOOD COUNT 7.4 10^3/uL (4.0-10.0)
--- NOTE | 2020-09-22 10:42 | REP ---
INDICATION: LMP end of Jul, bleeding started last night COMPARISON: None. TECHNIQUE: Transabdominal 1st trimester obstetrical ultrasound with color Doppler evaluation. FINDINGS: Heterogeneous retroflexed uterus measures 8.3 x 4.7 x 5.9 cm. Gestational sac with yolk sac and pole identified. CRL of 5.9 mm corresponds to 6 weeks 3 days gestational age. cardiac activity is difficult to obtain. Bilateral maternal ovaries are normal in appearance and vascularity. Right corpus luteal cyst suggested. IMPRESSION: Findings suggest single live early intrauterine with measurements at 6 weeks 3 days gestational age. cardiac activity was incompletely obtainable. Consider correlation with serial HCG levels and follow-up ultrasound as necessary. <Electronically signed by Keaton Julien > 09/22/20 [id number]
[2020-09-22 11:24] VITALS: BP 106/60
== END 2020-09-22 11:26 | disposition home or self-care (01) ==
LOC: M ED 08:29
DX: O20.0 Threatened abortion (principal); O09.521 Supervision of elderly multigravida, first trimester; O99.341 Other mental disorders complicating pregnancy, first trimester; Z3A.01 Less than 8 weeks gestation of pregnancy; Z79.899 Other long term (current) drug therapy

== ENCOUNTER 2020-09-25 10:39 | Emergency (ER) | payer OTHER ==
[~2020-09-25] VITALS: Ht 160 cm; Wt 62.6 kg
[~2020-09-25 10:39] MED LIST changes: +WELLTAB40 PO
[2020-09-25] MEDS ORDERED: HYDR1CAP25 (10:56)
[2020-09-25] MEDS ORDERED: NARC1SPR (10:56)
--- NOTE | 2020-09-25 12:54 | REP ---
INDICATION: increased pain bleeding 6wk US 09/15 COMPARISON: 09/22/2020 TECHNIQUE: Transabdominal and transvaginal ultrasound examination with color Doppler evaluation. FINDINGS: Heterogeneous retroverted uterus measures 8.0 x 5.2 x 6.5 cm. The endometrial complex measures 10.7 mm thickness. No intrauterine identified. Bilateral ovaries are normal in appearance and vascularity. Right ovary measures 3.1 x 2.7 x 2.3 cm and includes 1.9 cm and 1.8 cm physiologic/hemorrhagic cysts. Left ovary measures 2.9 x 1.3 x 1.4 cm. No pelvic fluid or further adnexal mass lesion noted. IMPRESSION: No intrauterine identified on current examination. The gestational sac with pole identified on prior exam is no longer visible and findings likely represent missed spontaneous . Correlation with HCG levels recommended. <Electronically signed by Keaton Julien > 09/25/20 [id number]
[2020-09-25 13:02] LABS: HEMATOCRIT 34.5 % (36.0-47.0); MEAN CORPUSCULAR HEMOGLOBIN 28.8 pg (27.0-33.0); MEAN CORPUSCULAR HGB CONC 31.9 g/dl (32.0-36.5); MEAN CORPUSCULAR VOLUME 90.3 fl (80.0-96.0); PLATELET COUNT, AUTOMATED 246 10^3/uL (150-450); RED BLOOD COUNT 3.82 10^6/uL (4.00-5.40); WHITE BLOOD COUNT 6.1 10^3/uL (4.0-10.0)
[2020-09-25 13:48] VITALS: BP 119/73
== END 2020-09-25 13:50 | disposition home or self-care (01) ==
LOC: M ED 10:39
DX: O03.9 Complete or unspecified spontaneous abortion without complication (principal); Z79.899 Other long term (current) drug therapy

== ENCOUNTER → 2022-02-05 | Outpatient (REF) ==
[~2022-02-05] MED LIST changes: +HYDR1CAP25; +NARC1SPR
== END ==
LOC: M LAB 14:06
PROVIDERS: ATTEND Nurse Practitioner Adult Health
DX: Z02.1 Encounter for pre-employment examination (principal)